=== PATIENT | male | born 1995 | race Caucasian/White ===

== ENCOUNTER 2020-03-20 12:48 | Emergency (ER) | payer OTHER ==
[~2020-03-20] VITALS: Ht 182.9 cm; Wt 102.1 kg
[2020-03-20 13:36] LABS: ABSOLUTE BASOPHILS 0.1 thou/uL (0.0-0.2); ABSOLUTE EOSINOPHILS 0.6 thou/uL (0.0-0.7); ABSOLUTE LYMPHOCYTES 2.7 thou/uL (0.8-5.3); ABSOLUTE MONOCYTES 0.6 thou/uL (0.0-1.2); ABSOLUTE NEUTROPHILS 5.8 thou/uL (1.6-8.1); BASOPHILS 0.8 %; EOSINOPHILS 6.3 %; HEMATOCRIT 45.1 % (42.0-52.0); LYMPHOCYTES 27.5 %; MCH 32.4 pg (26.0-34.0); MCHC 35.4 g/dL (28.0-37.0); MCV 91.4 fL (80.0-100.0); MONOCYTES 6.5 %; MPV 10.3 fl. (7.2-11.1); NUCLEATED RBCS 0 /100WBC; PLATELET COUNT* 162 thou/uL (150-400); POLYS 58.9 %; RBC 4.93 mil/uL (4.50-6.00); RDW-CV 13.5 % (10.5-14.5); WBC 9.9 thou/uL (4.0-11.0)
[2020-03-20 13:48] LABS: CALCIUM 8.6 mg/dL (8.5-10.1); CREATININE 0.9 mg/dL (0.6-1.3); POTASSIUM 4.3 mmol/L (3.5-5.1)
[2020-03-20 13:57] LABS: URINE BILIRUBIN NEGATIVE (Negative); URINE BLOOD NEGATIVE (Negative); URINE CLARITY CLEAR; URINE COLOR YELLOW; URINE GLUCOSE-RANDOM NEGATIVE (Negative); URINE KETONES NEGATIVE (Negative); URINE LEUKOCYTES-REFLEX NEGATIVE (Negative); URINE NITRITE-REFLEX NEGATIVE (Negative); URINE PROTEIN NEGATIVE (Negative); URINE SPECIFIC GRAVITY 1.015 (1.005-1.030); URINE UROBILINOGEN 0.2 E.U./dl (0.2-1.0)
[2020-03-20 14:00] LABS: ALBUMIN 3.5 g/dL (3.4-5.0); TOTAL BILIRUBIN 0.5 mg/dL (<0.1-1.0); TOTAL PROTEIN 7.3 g/dL (6.4-8.2)
[2020-03-20] MEDS ORDERED: NORCO 5-325 TA1 EAC2 PO (14:47)
[2020-03-20 15:15] VITALS: BP 130/72
== END 2020-03-20 15:16 | disposition home or self-care (01) ==
LOC: M.ERS 12:48
PROVIDERS: Physician Assistant
DX: R10.12 Left upper quadrant pain (principal); F17.210 Nicotine dependence, cigarettes, uncomplicated